=== PATIENT | female | born 1960 | race Caucasian/White ===

== ENCOUNTER 2018-07-20 09:27 | Observation (INO) ==
[2018-07-20] MEDS ORDERED: Aspirin 81 MG TAB.CHEW PO ONE (09:34)
[2018-07-20] MEDS ORDERED: Nitroglycerin 0.4 MG TAB.SUBL SL PRN (09:34)
[2018-07-20 10:05] LABS: Eosinophils # 0.1 K/mcL (0.0-0.6); Eosinophils % 0.4 %; Hematocrit 48.3 % (35.3-44.9); Hemoglobin 15.4 g/dL (11.5-15.4); Immature Granulocytes % 4.4 % (0-4); Lymphocytes # 6.4 K/mcL (0.6-4.6); Mean Corpuscular HGB Conc 31.9 g/dL (31.6-35.5); Mean Corpuscular Hemoglobin 28.4 pg (28.0-33.3); Mean Corpuscular Volume 89.1 fL (83.0-100.0); Mean Platelet Volume 9.5 fL (9.4-12.4); Monocytes % 6.9 %; Platelet Count 207 K/mcL (140-400); Red Blood Count 5.42 M/mcL (3.82-4.97); Red Cell Distribution Width 14.6 % (11.5-14.5); Segmented Neutrophils % 61.3 %
--- NOTE | 2018-07-20 10:05 | Emergency Department Note ---
Disposition Clinical Impression: Chest pain Qualifiers: Chest pain type: unspecified Qualified Code(s): R07.9 - Chest pain, unspecified Disposition: Admitted As Inpatient Condition: Good Referrals: Annemarie Davis CNP [Primary Care Provider] - Time of Disposition: 11:07 General Adult HPI - General Chief complaint: ED Chest Pain Stated complaint: chest pain Time Seen by Provider: 07/20/18 09:30 Source: patient, EMS Mode of arrival: EMS Limitations: no limitations Nursing Notes Reviewed: Yes Vital Signs Reviewed: Yes - History of Present Illness HPI Narrative: Patient is a 57-year-old female that presents the emergency department with reports of chest pain. Patient states that the pain is in her left upper chest and radiates into her left shoulder and down into her left arm. Patient states that she has had some shortness of breath, diaphoresis and nausea associated with her chest pain. Patient denies any previous heart issues in the past. Patient states that she has had a family history were her father did have a heart attack in his early 70s. Patient attempted to drive to the emergency department with the pain got so bad she had to stop and EMS did bring her here to the ER. EMS states that she was hypertensive on initial presentation and was complaining of chest pain that was a 10 out of 10. Pain Scale: 10 - Related Data Home Medications Medication Instructions Recorded Confirmed Albuterol Sulfate [Ventolin Hfa] 8 gm IH 07/14/18 Benzonatate 200 mg PO 07/14/18 Previous Rx's Medication Instructions Recorded Azithromycin [Azithromycin 6-Tab 250 mg PO PER PKG DI #6 tab 07/14/18 Pack] predniSONE [PredniSONE] 20 mg PO DAILY #18 tablet 07/14/18 Allergies Allergy/AdvReac Type Severity Reaction Status Date / Time dust Allergy Hives Uncoded 06/15/17 11:38 All systems ED: reviewed and negative except as stated. Constitutional: Denies: fever Cardiovascular: Reports: chest pain Respiratory: Reports: dyspnea Gastrointestinal: Reports: nausea Musculoskeletal: Reports: other (Left arm pain) Past Medical History - Past Medical History Medical history: Reports: asthma Surgical history: Reports: non-contributory Psychiatric history: Reports: no psych history - Social History Smoking Status: Current every day smoker Smokeless Tobacco Status: No Alcohol use: Reports: none Drug use: Reports: none Physical Exam - General Limitations: no limitations General appearance: alert, in no apparent distress - Head Head exam: atraumatic, normocephalic - Eye Eye exam: Present: normal appearance, EOMI - Neck Neck exam: Present: normal inspection, full ROM, trachea midline - Respiratory Respiratory exam: Present: normal lung sounds bilaterally. Absent: respiratory distress, wheezes - Cardiovascular Cardiovascular exam: Present: regular rate, normal rhythm, normal heart sounds, +S1, +S2 - Abdominal Exam Abdominal exam: Present: soft, Non-Tender, normal bowel sounds - Neurological Exam Neurological exam: Present: alert, oriented X3 - Psychiatric Psychiatric exam: Present: normal affect, normal mood - Skin Skin exam: Present: warm, dry, intact Course Vital Signs Temperature 98.6 F 07/20/18 09:31 Pulse Rate 75 07/20/18 09:31 Respiratory Rate 16 07/20/18 09:31 Blood Pressure 184/89 07/20/18 09:31 O2 Sat by Pulse Oximetry 96 07/20/18 09:31 Temperature 98.6 F 07/20/18 09:31 Pulse Rate 75 07/20/18 09:31 Respiratory Rate 16 07/20/18 09:31 Blood Pressure 184/89 07/20/18 09:31 O2 Sat by Pulse Oximetry 96 07/20/18 09:31 Oxygen Delivery Oxygen Delivery Room Air Medical Decision Making - [facility] Narrative Medical decision making narrative: Due the patient presents emergency Department with reports of chest pain we we will obtain basic laboratory testing as well as chest x-ray and EKG. Patient was given nitroglycerin for her pain. Patient states that her chest pain has resolved. Patient does still have some left arm pain and will be given Tylenol. Patient's laboratory testing shows an elevated white blood cell count of 23,000. Troponin is negative. Remainder of her laboratory testing is relatively unremarkable. Chest x-ray did not show any acute cardiopulmonary process. The EKG showed T-wave inversion in aVL but no other acute findings. Based on the new EKG findings and the patient having chest pain as a chief complaint of feeling is appropriate for her to be admitted to the hospital for further evaluation and management. Patient is in agreement with this plan. Called spoke the admitting hospitalist Dr. Henao and she is except the patient to service. Patient admitted to hospital this time for further evaluation and management. - Medical Records Medical records reviewed: Yes I reviewed the patient's medical records. - Lab Data Lab results reviewed: Yes I reviewed the patient's lab results. Result diagrams: 07/20/18 09:55 07/20/18 09:55 Lab Results 07/20/18 07/20/18 07/20/18 Range/Units 09:55 09:55 09:55 WBC 23.8 H (4.3-11.1) K/mcL RBC 5.42 H (3.82-4.97) M/mcL Hgb 15.4 (11.5-15.4) g/dL Hct 48.3 H (35.3-44.9) % MCV 89.1 (83.0-100.0) fL MCH 28.4 (28.0-33.3) pg MCHC 31.9 (31.6-35.5) g/dL RDW 14.6 H (11.5-14.5) % Plt Count 207 (140-400) K/mcL MPV 9.5 (9.4-12.4) fL Immature Gran % 4.4 H (0-4) % Seg Neutrophils % 61.3 % Lymphocytes % 27.0 % Monocytes % 6.9 % Eosinophils % 0.4 % Basophils % 0.0 % Neutrophils # 14.6 H (1.6-8.9) K/mcL Lymphocytes # 6.4 H (0.6-4.6) K/mcL Monocytes # 1.6 H (0.0-1.3) K/mcL Eosinophils # 0.1 (0.0-0.6) K/mcL Basophils # 0.0 (0.0-0.2) K/mcL PT 9.2 L (9.4-12.1) Seconds INR 0.8 APTT 24.9 L (26.0-36.0) Seconds Sodium 140 (136-145) mEq/L Potassium 4.2 (3.5-5.1) mEq/L Chloride 104 (98-107) mEq/L Carbon Dioxide 27 (23-29) mEq/L BUN 24 H (6-20) mg/dL Creatinine 0.73 (0.60-1.20) mg/dL Est GFR ( Amer) > 60 (> 60) Est GFR (Non-Af Amer) > 60 (> 60) BUN/Creatinine Ratio 33 H (6-26) Glucose 121 H (70-105) mg/dL Calculated Osmolality 295 (280-300) Calcium 9.5 (8.6-10.3) mg/dL Troponin I < 0.03 (< 0.04) ng/mL - Radiology Data Radiology results reviewed: Yes I reviewed the patient's radiology results. Chest X-Ray 07/20/18 09:39 IMPRESSION: Stable chest without acute process. D/ / Caro Cunningham MD / Caro Cunningham MD Interpreting Provider: Caro Cunningham MD - EKG Data EKG #1 EKG attestation: Yes I reviewed and interpreted this EKG. EKG results narrative: EKG shows a sinus rhythm at a rate of 73 beats from it, TN interval 134, QRS duration 77, QTc of 405. There is no evidence of STEMI on EKG. There are new T-wave inversions in aVL. This is compared to previous EKG on 04/17/16. There were T-wave inversions in II, III, and F aVF at that time which have since resolved.
[2018-07-20 10:18] LABS: INR 0.8; Prothrombin Time 9.2 Seconds (9.4-12.1)
[2018-07-20 10:20] LABS: Activated Partial Thrombo Time 24.9 Seconds (26.0-36.0)
[2018-07-20 10:35] LABS: BUN/Creatinine Ratio 33 (6-26); Blood Urea Nitrogen 24 mg/dL (6-20); Calcium 9.5 mg/dL (8.6-10.3); Carbon Dioxide 27 mEq/L (23-29); Chloride 104 mEq/L (98-107); Glucose 121 mg/dL (70-105); Osmolality,Calculated 295 (280-300); Potassium 4.2 mEq/L (3.5-5.1); Sodium 140 mEq/L (136-145); Troponin I < 0.03 ng/mL (< 0.04); eGFR For Non-African Americans > 60 (> 60)
[2018-07-20 10:36] LABS: Monocytes # 1.6 K/mcL (0.0-1.3); Neutrophils # 14.6 K/mcL (1.6-8.9)
[2018-07-20] MEDS ORDERED: Acetaminophen 325 MG TABLET PO ONE (11:05)
--- NOTE | 2018-07-20 11:34 | Emergency Department Note ---
Disposition Clinical Impression: Chest pain Qualifiers: Chest pain type: unspecified Qualified Code(s): R07.9 - Chest pain, unspecified Disposition: Admitted As Inpatient Condition: Good Referrals: Annemarie Davis CNP [Primary Care Provider] - Chest Pain HPI - General Chief Complaint: ED Chest Pain Stated Complaint: chest pain Time Seen by Provider: 07/20/18 09:30 Source: patient, EMS Mode of arrival: EMS Limitations: no limitations - History of Present Illness Severity scale (1-10): 10 - Related Data Home Medications Medication Instructions Recorded Confirmed Albuterol Sulfate [Ventolin Hfa] 8 gm IH 07/14/18 Benzonatate 200 mg PO 07/14/18 Previous Rx's Medication Instructions Recorded Azithromycin [Azithromycin 6-Tab 250 mg PO PER PKG DI #6 tab 07/14/18 Pack] predniSONE [PredniSONE] 20 mg PO DAILY #18 tablet 07/14/18 Allergies Allergy/AdvReac Type Severity Reaction Status Date / Time dust Allergy Hives Uncoded 06/15/17 11:38 Constitutional: Denies: fever Cardiovascular: Reports: chest pain Respiratory: Reports: dyspnea Gastrointestinal: Reports: nausea Musculoskeletal: Reports: other (Left arm pain) Chest Pain PMH - Past Medical History Medical history: Reports: asthma Surgical history: Reports: non-contributory Psychiatric history: Reports: no psych history - Social History Smoking Status: Current every day smoker Alcohol use: Reports: none Drug use: Reports: none Physical Exam - General Limitations: no limitations General appearance: alert, in no apparent distress Course Vital Signs Temperature 98.6 F 07/20/18 09:31 Pulse Rate 75 07/20/18 09:31 Respiratory Rate 16 07/20/18 09:31 Blood Pressure 184/89 07/20/18 09:31 O2 Sat by Pulse Oximetry 96 07/20/18 09:31 Temperature 98.6 F 07/20/18 09:31 Pulse Rate 75 07/20/18 09:31 Respiratory Rate 16 07/20/18 09:31 Blood Pressure 184/89 07/20/18 09:31 O2 Sat by Pulse Oximetry 96 07/20/18 09:31 Oxygen Delivery Oxygen Delivery Room Air Chest Pain - Lab Data Result diagrams: 07/20/18 09:55 07/20/18 09:55 Lab Results 07/20/18 07/20/18 07/20/18 Range/Units 09:55 09:55 09:55 WBC 23.8 H (4.3-11.1) K/mcL RBC 5.42 H (3.82-4.97) M/mcL Hgb 15.4 (11.5-15.4) g/dL Hct 48.3 H (35.3-44.9) % MCV 89.1 (83.0-100.0) fL MCH 28.4 (28.0-33.3) pg MCHC 31.9 (31.6-35.5) g/dL RDW 14.6 H (11.5-14.5) % Plt Count 207 (140-400) K/mcL MPV 9.5 (9.4-12.4) fL Immature Gran % 4.4 H (0-4) % Seg Neutrophils % 61.3 % Lymphocytes % 27.0 % Monocytes % 6.9 % Eosinophils % 0.4 % Basophils % 0.0 % Neutrophils # 14.6 H (1.6-8.9) K/mcL Lymphocytes # 6.4 H (0.6-4.6) K/mcL Monocytes # 1.6 H (0.0-1.3) K/mcL Eosinophils # 0.1 (0.0-0.6) K/mcL Basophils # 0.0 (0.0-0.2) K/mcL PT 9.2 L (9.4-12.1) Seconds INR 0.8 APTT 24.9 L (26.0-36.0) Seconds Sodium 140 (136-145) mEq/L Potassium 4.2 (3.5-5.1) mEq/L Chloride 104 (98-107) mEq/L Carbon Dioxide 27 (23-29) mEq/L BUN 24 H (6-20) mg/dL Creatinine 0.73 (0.60-1.20) mg/dL Est GFR ( Amer) > 60 (> 60) Est GFR (Non-Af Amer) > 60 (> 60) BUN/Creatinine Ratio 33 H (6-26) Glucose 121 H (70-105) mg/dL Calculated Osmolality 295 (280-300) Calcium 9.5 (8.6-10.3) mg/dL Troponin I < 0.03 (< 0.04) ng/mL Heart Score - Score History: Moderately Suspicious EKG: Non Specific repolarisation Disturbance Age: 45-65 Risk Factors: 1-2 risk factors Troponin: Less than normal limit HEART Score Total: 4 Attestation Statement - Attestation Attestation: I examined this patient and my medical decision-making was reviewed with the Resident Physician. I agree with the documented findings, disposition and treatment plan as described except to the extent set forth below. 57 year old female presents to the ED with complaints of chest pain that radiates into the left side of her arm and chest. Andrew states taht she is currently chest pain free and she has been treated with ASA. Andrew has a new t wave inversion in avf and troponin negative. WE will admit to medicine
[2018-07-20] MEDS ORDERED: Naloxone 0.4 MG/ML INJ IVP PRN (12:33)
--- NOTE | 2018-07-20 15:02 | Internal Med History&Physical ---
Date of Encounter: 07/20/18 Time of Encounter: 15:02 Internal Medicine - H&P: HPI Chief complaint: chest pain Admitted From: Home History of present illness: Ms. Blank is a 57 year old female with no significant PMH presented to [facility] on 07/20/18 with complaints of chest pain. She was placed in observation status for further workup and treatment. Information obtained from chart review and patient report. Patient reported acute chest pain that started at 03 100 this morning. Described as sharp and throbbing. Radiated to left shoulder and down left arm. Chest pain woke her from sleep. With associated nausea and diaphoresis. Chest pain improved on my exam but still having achiness to left arm. She does have some associated shortness of breath but says she is getting over an upper respiratory infection for which she was prescribed azithromycin and prednisone. No chest pain, no abdominal pain, no nausea vomiting or diarrhea. Past Med Surg Social Fam HX - Past Medical History Medical history: asthma Additional medical history: skin cancer Psychiatric history: no psych history - Past Surgical History Surgical History: non-contributory Additional surgical history: skin cancer removed - Social History Smoking Status: Current every day smoker Smokeless Tobacco Status: No Alcohol use: none Drug use: none - Family History Father Living Status: Hx Family Cardiac Disorders: Yes Internal Medicine - H&P: Meds Albuterol Sulfate [Ventolin Hfa] 8 gm IH 07/14/18 [History] Azithromycin [Azithromycin 6-Tab Pack] 250 mg PO PER PKG DI #6 tab 07/14/18 [Rx] Benzonatate 200 mg PO 07/14/18 [History] predniSONE [PredniSONE] 20 mg PO DAILY #18 tablet 07/14/18 [Rx] Allergy/AdvReac Type Severity Reaction Status Date / Time dust Allergy Hives Uncoded 06/15/17 11:38 All Systems PM: A 14 system review of systems was performed and is negative for pertinent findings except as documented above in the HPI. - Constitutional Vitals: Temp Pulse Resp BP Pulse Ox 98.3 F 78 16 158/91 93 07/20/18 14:09 07/20/18 14:09 07/20/18 14:09 07/20/18 14:09 07/20/18 14:09 General appearance: Present: A&O X 3, morbidly obese Exam: . - Head Head exam: Present: atraumatic, normocephalic - Eye Eye exam: Present: PERRL, conjuntiva pink, sclera anicteric Pupils: Present: PERRL - Neck Neck exam general surgery: Present: supple, trachea midline. Absent: lymphadenopathy - Respiratory Respiratory exam: Absent: accessory muscle use, rales, rhonchi, wheezes Additional comments: lung sounds diminished with scant wheezing - Cardiovascular Cardiovascular exam: Present: RRR, +S1, +S2. Absent: diastolic murmur, gallop, rubs, systolic murmur - GI/Abdominal GI/Abdominal exam: Present: normal bowel sounds, soft, no peritoneal signs. Absent: distended, tenderness - Extremities Exam Extremities exam: Present: warm, radial pulses palpable and symmetrical. Absent: calf tenderness, cyanotic, pedal edema - Neurological Exam Neurological exam: Present: CN II-XII intact, oriented X3, no focal deficits. Absent: pronater drift, facial droop, speech deficit - Skin Skin exam: Present: dry, intact Internal Med - H&P Results - Labs CBC & Chem 7: 07/20/18 09:55 07/20/18 09:55 Labs: Short CBC 07/20/18 Range/Units 09:55 WBC 23.8 H (4.3-11.1) K/mcL Hgb 15.4 (11.5-15.4) g/dL Hct 48.3 H (35.3-44.9) % Plt Count 207 (140-400) K/mcL Neutrophils # 14.6 H (1.6-8.9) K/mcL BMP 07/20/18 09:55 Sodium 140 Potassium 4.2 Chloride 104 Carbon Dioxide 27 BUN 24 H Creatinine 0.73 Glucose 121 H Calcium 9.5 Cardiac Enzymes 07/20/18 07/20/18 Range/Units 09:55 14:04 Troponin I < 0.03 < 0.03 (< 0.04) ng/mL - Impressions ITS Impressions Chest X-Ray 07/20/18 09:39 IMPRESSION: Stable chest without acute process. D/ / Caro Cunningham MD / Caro Cunningham MD Interpreting Provider: Caro Cunningham MD - Assessment and Plan (1) Chest pain Current Visit: Yes Status: Acute Assessment and plan: presented with chest pain that woke her from sleep; radiated to left arm with associated nausea and diaphoresis. Initial troponin negative. EKG without ac habematolel ST changes. No previous ischemic eval; cardiac risk factors include morbid obesity, tobacco use and family history. Cycle troponin. Check echo. NPO at midnight. Stress test in a.m. Qualifiers: Chest pain type: unspecified Qualified Code(s): R07.9 - Chest pain, unspecified (2) COPD exacerbation Current Visit: Yes Status: Acute Assessment and plan: no official diagnosis of COPD but suspect some underlying component with long- term tobacco use. Seen by PCP and started on azithromycin and completed prednisone burst. Continue azithromycin (has 3 days left). Scant wheezing noted on exam. Hold on steroids. Bronchodilators. (3) Leukocytosis Current Visit: Yes Status: Acute Assessment and plan: WBC 23. No tachycardia or hypotension. Most likely secondary to steroids. Monitor repeat CBC Qualifiers: Leukocytosis type: unspecified Qualified Code(s): D72.829 - Elevated white blood cell count, unspecified (4) DVT prophylaxis Current Visit: Yes Status: Acute Assessment and plan: lovenox - Time Spent With Patient Total time spent is greater than 50% in coordination of care (as documented) at patient's floor/unit and/or counseling patient:
[2018-07-20] MEDS: Azithromycin 250 MG TABLET PO SCH (16:14)
[2018-07-20] MEDS: *HR* OxyCODONE Immed Rel 5 MG TABLET PO PRN ×2 (17:46→22:41)
[2018-07-20] MEDS ORDERED: Ipratropium/Albuterol Neb 3 ML ONE (18:00)
[2018-07-20] MEDS: Ipratropium/Albuterol Neb 3 ML IH SCH (18:01)
[2018-07-21] MEDS: Ipratropium/Albuterol Neb 3 ML IH SCH ×6 (00:03→19:57)
[2018-07-21] MEDS: *HR* OxyCODONE Immed Rel 5 MG TABLET PO PRN ×2 (02:37→11:13)
[2018-07-21 03:51] LABS: Hematocrit 45.5 % (35.3-44.9); Hemoglobin 15.2 g/dL (11.5-15.4); Mean Corpuscular HGB Conc 33.4 g/dL (31.6-35.5); Mean Corpuscular Hemoglobin 28.6 pg (28.0-33.3); Mean Corpuscular Volume 85.7 fL (83.0-100.0); Mean Platelet Volume 10.1 fL (9.4-12.4); Platelet Count 183 K/mcL (140-400); Red Blood Count 5.31 M/mcL (3.82-4.97); Red Cell Distribution Width 14.8 % (11.5-14.5)
[2018-07-21 04:08] LABS: Alanine Aminotransferase 91 Units/L (7-52); Albumin 3.6 g/dL (3.5-5.7); Albumin/Globulin Ratio 1.6 (1.1-2.2); Alkaline Phosphatase 63 Units/L (34-104); Aspartate Amino Transferase 67 Units/L (13-39); BUN/Creatinine Ratio 26 (6-26); Bilirubin,Total 0.8 mg/dL (0.3-1.0); Blood Urea Nitrogen 19 mg/dL (6-20); Calcium 9.1 mg/dL (8.6-10.3); Carbon Dioxide 28 mEq/L (23-29); Chloride 101 mEq/L (98-107); Cholesterol 188 mg/dL (< 200); Globulin 2.2 g/dL (2.4-3.5); Glucose 103 mg/dL (70-105); HDL Cholesterol 62 mg/dL (40-59); LDL Cholesterol,Calculated 103 mg/dL (0-99); Osmolality,Calculated 287 (280-300); Potassium 4.3 mEq/L (3.5-5.1); Sodium 137 mEq/L (136-145); Total Protein 5.8 g/dL (6.4-8.9); Triglycerides 113 mg/dL (< 150); eGFR For Non-African Americans > 60 (> 60)
[2018-07-21] MEDS: *HR* Enoxaparin 40 MG/0.4 ML SYRINGE SQ SCH (05:51)
[2018-07-21] MEDS ORDERED: Regadenoson 0.4 MG/5 ML SYRINGE IVP ONE (06:54)
[2018-07-21] MEDS ORDERED: amLODIPine 5 MG TABLET PO SCH (09:00)
[2018-07-21] MEDS: Azithromycin 250 MG TABLET PO SCH (09:50)
[2018-07-21] MEDS: Aspirin 81 MG TAB.CHEW PO SCH (09:51)
[2018-07-21] MEDS ORDERED: amLODIPine 5 MG TABLET PO ONE (11:00)
--- NOTE | 2018-07-21 16:15 | Internal Med Progress Note ---
Hospitalist Progress Note - Encounter Date of Encounter: 07/21/18 Time of Encounter: 16:12 - Subjective Interval History: I have seen and evaluated the patient at bedside. patient reports the chest pain have resolved. denies shortness of breath. reports left upper extremity pain, associated with tingling sensation and pain in the wrist. - Exam Vitals: Temp Pulse Resp BP Pulse Ox 98.6 F 75 16 158/89 95 07/21/18 15:51 07/21/18 15:51 07/21/18 15:51 07/21/18 15:51 07/21/18 15:51 Exam: Vitals: Reviewed. General: Morbidly obese, Alert and oriented x4. In mild distress due to left upper extr painNo JVD. Pulse regular. Lungs: CTA b/l, no wheezes or crackles. Abdomen: Obese, soft, non-tender, no rigidity. Extremities: No deformity, no edema or tenderness, no joint swelling or clubbing. Neurological: Normal cognition and motor skills. Rest of the physical exam is non contributory - Assessment and Plan (1) Chest pain Current Visit: Yes Status: Resolved Assessment and Plan: patient reported chest pain has resolved. one part of the stress test done will continue aspirin 81mg/PO daily patient reporting left upper extr pain more significant at the wrist uric acid and x-ray of the wrist ordered (2) COPD exacerbation Current Visit: Yes Status: Resolved Assessment and Plan: chest is clear to auscultation. patient recently completed a course of steroids taper. will continue azithromycin 250mg/PO daily and bronchodilators. (3) Leukocytosis Current Visit: Yes Status: Acute Assessment and Plan: most likely reactive. patient complete a course of steroids. no signs of infection. will monitor clinically. (4) Hypertension Current Visit: Yes Status: Chronic Assessment and Plan: BP sustained in 180s for SBP. patient not on any antihypertensive medication as outpatient. started on amlodipine 10mg/PO daily. DVT Prophylaxis: on lovenox 40mg SubQ daily - Summary of Assessment and Plan Summary of Assessment and Plan: patient to remain in the hospital to complete ischemic work up. - Time Spent with Patient Total time spent is greater than 50% in coordination of care (as documented) at patient's floor/unit and/or counseling patient: Greater than 35 minutes (40) Plan of Care Discussed with: patient (her family at bedside) Internal Medicine: Result - Labs CBC & Chem 7: 07/21/18 03:14 07/21/18 03:14 Labs: Short CBC 07/21/18 Range/Units 03:14 WBC 17.9 H (4.3-11.1) K/mcL Hgb 15.2 (11.5-15.4) g/dL Hct 45.5 H (35.3-44.9) % Plt Count 183 (140-400) K/mcL BMP 07/21/18 03:14 Sodium 137 Potassium 4.3 Chloride 101 Carbon Dioxide 28 BUN 19 Creatinine 0.73 Glucose 103 Calcium 9.1 Cardiac Enzymes 07/20/18 07/21/18 Range/Units 20:16 03:14 Troponin I < 0.03 < 0.03 (< 0.04) ng/mL Liver Function 07/21/18 Range/Units 03:14 Total Bilirubin 0.8 (0.3-1.0) mg/dL AST 67 H (13-39) Units/L ALT 91 H (7-52) Units/L Alkaline Phosphatase 63 (34-104) Units/L Albumin 3.6 (3.5-5.7) g/dL - ABG Interpretation ABG results: PT/INR, D-dimer PT 9.2 Seconds (9.4-12.1) L 07/20/18 09:55 - Impressions Impressions Echocardiogram 07/20/18 12:39 Impressions: LVEF 70%. Mild left ventricular diastolic dysfunction. Dynamic LVOT gradient without obstruction. Normal right ventricular structure and function. No significant valvular dysfunction. No pulmonary hypertension based on TR signal obtained. Left Ventricular Wall Motion: Rest Echo Findings The mid inferior lateral and basal inferior lateral hinojosa were not visualized. All other wall segments showed normal motion. Findings: Study Quality * Technically challenging due to body habitus. ECG Findings * Normal sinus rhythm. Left Ventricle * LVEF 70%. * Mild left ventricular diastolic dysfunction. * Dynamic LVOT gradient without obstruction. * Normal LV chamber size and wall thickness. Right Ventricle * Normal right ventricular structure and function. Left Atrium * Normal left atrial size. Right Atrium * Normal right atrial size. Aortic Valve * No aortic regurgitation. * Aortic valve not well visualized. * No aortic stenosis. Mitral Valve * No mitral regurgitation. * No mitral stenosis. * Normal mitral valve structure. Tricuspid Valve * Tricuspid valve not well visualized. * Trace tricuspid regurgitation. Pulmonic Valve * Pulmonic valve is not well visualized. * No pulmonic stenosis. * No pulmonic regurgitation. Pulmonary Artery * Pulmonary artery not well visualized. Aorta * Not well visualized. Pericardium * There is no pericardial effusion present. Interatrial Septum * No evidence of PFO by color Doppler. IVC * The IVC is not well evaluated. Consult Discharge Plan - Plan Referrals: Annemarie Davis, [employer] [Primary Care Provider] - (1) Chest pain Qualifiers: Chest pain type: unspecified Qualified Code(s): R07.9 - Chest pain, unspecified (3) Leukocytosis Qualifiers: Leukocytosis type: unspecified Qualified Code(s): D72.829 - Elevated white blood cell count, unspecified (4) Hypertension Qualifiers: Hypertension type: unspecified Qualified Code(s): I10 - Essential (primary) hypertension
[2018-07-21] MEDS: Gabapentin 300 MG CAPSULE PO SCH (20:24)
--- NOTE | 2018-07-21 21:15 | Electrocardiograph Report ---
[place] [place] [facility] Test Date: 2018-07-20 Pat Name: Cristina Blank Department: EXAM2 Room: 3B38 Gender: F Gut Snatcher: : 1960 Requested By: Jimmy Jackson Order Number: [id number] Reading MD: Edilberto Ashton Measurements Intervals [place] Rate: 73 P: 65 LA: 134 QRS: 49 QRSD: 77 T: 98 QT: 367 QTc: 405 Interpretive Statements Sinus rhythm Nonspecific T abnormalities, lateral leads Electronically Signed On 07-21-2018 21:13:15 EDT by Edilberto Ashton
[2018-07-21] MEDS ORDERED: Ibuprofen 400 MG TABLET PO PRN (22:46)
[2018-07-22] MEDS: Ipratropium/Albuterol Neb 3 ML IH SCH ×5 (00:10→12:32)
[2018-07-22] MEDS: *HR* Enoxaparin 40 MG/0.4 ML SYRINGE SQ SCH (06:04)
[2018-07-22 06:53] VITALS: BP 135/77
[2018-07-22 07:24] LABS: Basophils # 0.1 K/mcL (0.0-0.2); Basophils % 0.8 %; Eosinophils # 0.2 K/mcL (0.0-0.6); Hematocrit 46.8 % (35.3-44.9); Hemoglobin 15.6 g/dL (11.5-15.4); Immature Granulocytes % 1.9 % (0-4); Lymphocytes # 3.7 K/mcL (0.6-4.6); Lymphocytes % 23.2 %; Mean Corpuscular HGB Conc 33.3 g/dL (31.6-35.5); Mean Corpuscular Hemoglobin 28.5 pg (28.0-33.3); Mean Corpuscular Volume 85.6 fL (83.0-100.0); Mean Platelet Volume 10.2 fL (9.4-12.4); Monocytes # 1.3 K/mcL (0.0-1.3); Monocytes % 7.9 %; Neutrophils # 10.6 K/mcL (1.6-8.9); Platelet Count 175 K/mcL (140-400); Red Blood Count 5.47 M/mcL (3.82-4.97); Red Cell Distribution Width 15.1 % (11.5-14.5); Segmented Neutrophils % 65.2 %
[2018-07-22 07:45] LABS: BUN/Creatinine Ratio 22 (6-26); Blood Urea Nitrogen 16 mg/dL (6-20); Calcium 9.3 mg/dL (8.6-10.3); Carbon Dioxide 29 mEq/L (23-29); Chloride 101 mEq/L (98-107); Glucose 106 mg/dL (70-105); Magnesium 2.2 mg/dL (1.6-2.6); Osmolality,Calculated 292 (280-300); Phosphorous 3.6 mg/dL (2.7-4.5); Potassium 4.3 mEq/L (3.5-5.1); Sodium 140 mEq/L (136-145); eGFR For Non-African Americans > 60 (> 60)
--- NOTE | 2018-07-22 08:52 | Discharge Summary ---
- NOTES TO OUTPATIENT PROVIDER Notes to Outpatient Provider: LFTs within a week. AST 67 to 40. ALT 91 to 83 Orders not resulted at time of discharge: Pending orders 07/20/18 07:00 NM brandon perf SPECT multi [NM] Routine 07/20/18 09:39 ECG 12 lead ECG [ECG] Stat 07/22/18 06:04 Basic Metabolic Panel AM 0400 Gamma Glutamyl Transpeptidase Routine Hepatic Panel Routine Magnesium AM 0400 Phosphorous AM 0400 Uric Acid Routine 07/22/18 08:36 Liver Ultrasound [US liver] [US] Stat Date of Encounter: 07/22/18 Time of Encounter: 08:48 - Discharge Diagnosis (1) Chest pain Priority: Primary Status: Resolved Qualifiers: Chest pain type: unspecified Qualified Code(s): R07.9 - Chest pain, unspecified (2) COPD exacerbation Priority: Secondary Status: Resolved (3) Leukocytosis Priority: Secondary Status: Acute Qualifiers: Leukocytosis type: unspecified Qualified Code(s): D72.829 - Elevated white blood cell count, unspecified (4) Hypertension Priority: Secondary Status: Chronic Qualifiers: Hypertension type: unspecified Qualified Code(s): I10 - Essential (primary) hypertension (5) Elevated liver enzymes Priority: Secondary Status: Acute Hospital course: Ms. Blank is a 57 year old female medical history of asthma presented to [facility] on 07/20/18 with complaints of chest pain. Patient also reported left upper extremity pain associated with tingling. Patient was admitted to the hospital due to chest pain r/o acs. Patient managed with Nitro, pain medications. SBP sustained in the 180-190s, patient started on an oral antihypertensive. As part of the work for acs a nuclear stress test was done: unremarkable. TTE with no significant valvular disfunction. During this admission LFT were found to be elevated with a normal billirubin. Patient recommended to follow with her PCP and have a repeat LFTs within a week. Also recommended to follow up with a GI for further outpatient work up. Patient acute symptoms resolved. She is hemodynamically stable to be discharged home. - Time Spent with Patient Total time spent providing and/or coordinating discharge services: Time spent: Greater than 30 minutes (35) - Discharge Medications Prescriptions: New Albuterol Sulfate [Albuterol Inhaler] 1 - 2 puff IH Q4HR 30 Days #2 hfa.aer.ad amLODIPine [Norvasc] 10 mg PO DAILY 30 Days #30 tablet Aspirin 81 mg PO DAILY 30 Days #30 tab.chew Azithromycin [Zithromax] 250 mg PO DAILY 5 Days #5 tablet Gabapentin [Neurontin] 300 mg PO TID 30 Days #90 capsule Home Medications: Albuterol Sulfate [Albuterol Inhaler] 1 - 2 puff IH Q4HR 30 Days #2 hfa.aer.ad 07/22/18 [Rx] Aspirin 81 mg PO DAILY 30 Days #30 tab.chew 07/22/18 [Rx] Azithromycin [Zithromax] 250 mg PO DAILY 5 Days #5 tablet 07/22/18 [Rx] Gabapentin [Neurontin] 300 mg PO TID 30 Days #90 capsule 07/22/18 [Rx] amLODIPine [Norvasc] 10 mg PO DAILY 30 Days #30 tablet 07/22/18 [Rx] Allergies/Adverse Reactions: Allergy/AdvReac Type Severity Reaction Status Date / Time dust Allergy Hives Uncoded 07/21/18 11:02 Date of admission: 07/20/18 12:46 Primary care physician: Annemarie Davis, - Constitutional Vitals: Temp Pulse Resp BP Pulse Ox 98.2 F 79 16 135/77 92 07/22/18 06:49 07/22/18 06:49 07/22/18 08:33 07/22/18 06:49 07/22/18 08:33 General appearance: Present: A&O X 3, morbidly obese Exam: Vitals: Reviewed. General: Morbidly obese, Alert and oriented x4. In no distress Cardiovascular: RRR, normal S1 & S2, no rubs, murmurs or gallops. Lungs: CTA b/l, no wheezes or crackles. Abdomen: Obese, soft, non-tender, no rigidity. NABS in all 4 quadrants. negative Lord's sign. Extremities: No deformity, no edema Neurological: Normal cognition and motor skills. Rest of the physical exam is non contributory - Patient Status Disposition: Home, Self-Care Condition: Good Functional capacity at discharge: independent ambulation Overall status at discharge: patient is back to baseline - Discharge Instructions Instructions: Albuterol (By breathing), Aspirin (By mouth), Azithromycin (By mouth), Gabapentin (By mouth), Amlodipine (By mouth), Chest Pain (DC) Follow Up With: Annemarie Davis CNP [Primary Care Provider] - (An appointment has been requested. The office will call with appointment date and time.) Pablo Sheth MD [Partnered Physician] - (Appointment has been requested. The office will call with the date and time.) - Diet and Activity Activity: resume usual activities as tolerated Diet: low salt diet
[2018-07-22 08:54] LABS: Alanine Aminotransferase 83 Units/L (7-52); Albumin 3.7 g/dL (3.5-5.7); Albumin/Globulin Ratio 1.5 (1.1-2.2); Alkaline Phosphatase 67 Units/L (34-104); Aspartate Amino Transferase 40 Units/L (13-39); Bilirubin,Direct 0.3 mg/dL (0.0-0.2); Bilirubin,Total 1.3 mg/dL (0.3-1.0); Gamma Glutamyl Transpeptidase 103 Units/L (1-24); Globulin 2.5 g/dL (2.4-3.5); Total Protein 6.2 g/dL (6.4-8.9); Uric Acid 6.4 mg/dL (2.3-7.6)
[2018-07-22] MEDS ORDERED: amLODIPine 5 MG TABLET PO SCH (09:00)
[2018-07-22] MEDS: Aspirin 81 MG TAB.CHEW PO SCH (10:28)
[2018-07-22] MEDS: Gabapentin 300 MG CAPSULE PO SCH (10:28)
[2018-07-22] MEDS: Azithromycin 250 MG TABLET PO SCH (10:28)
== END 2018-07-22 12:10 | disposition home or self-care (01) ==
LOC: 2SOUTHHOLD 09:27 → EMEROOARM 09:27 → 3BNU 12:49
PROVIDERS: ADMIT Internal Medicine Nephrology; ATTEND Internal Medicine